=== PATIENT | male | born 1980 | race Two or more races ===

== ENCOUNTER 2025-06-25 08:12 | Emergency (ER) | payer MEDICAID, SELFPAY ==
[2025-06-25 08:12] VITALS: BMI 24.4
[2025-06-25 08:17] VITALS: BP 144/94; PULSE 66; RESP 19; TEMP 37.2; O2SAT 100
--- NOTE | 2025-06-25 08:21 | PD.EDNV ---
Nausea/Vomit./Diarrhea-RME/HPI General Chief complaint: Nausea/Vomiting/Diarrhea Stated complaint: VOMITING DIARRHEA Time Seen by Provider: 06/25/25 08:18 Arrival date/time: 06/25/25 08:12 44-year-old male presents to the Emergency Department today for complaints of nausea vomiting and diarrhea patient reports that he ate pork tacos last night believes that the cause of his symptoms. Report started vomiting and having diarrhea at 2 AM Limitations: no limitations Related Data Home Medications ?Medication ?Instructions ?Recorded ?Confirmed hydrocortisone acetate 25 mg 25 mg RI HS #0 ea 01/16/16 rectal suppository (Anucort-HC) Previous Rx's ?Medication ?Instructions ?Recorded ibuprofen 800 mg tablet 800 mg PO TID PRN pain #30 tabs 06/25/25 loperamide 2 mg capsule (Imodium 2 mg PO Q6H PRN loose stool #14 06/25/25 A-D) caps ondansetron 4 mg disintegrating 4 mg PO Q8H PRN nausea and 06/25/25 tablet vomiting #10 tabs Allergies Allergy/AdvReac Type Severity Reaction Status Date / Time NKA* Allergy Uncoded 06/25/25 08:14 Review of Systems Review of Systems Systems Reviewed: All systems reviewed, normal except as documented Constitutional Constitutional: Reports system reviewed and no additional complaints, except as documented, Denies fever(s) and Denies headache(s) Eyes Eyes: Reports system reviewed and no additional complaints, except as documented and Denies blurry vision ENT Ears, Nose, Mouth, and Throat: Reports system reviewed and no additional complaints, except as documented, Denies headache(s), Denies nasal congestion and Denies nasal discharge Cardiovascular Cardiovascular: Reports system reviewed and no additional complaints, except as documented, Denies chest pain and Denies dyspnea Respiratory Respiratory: Reports system reviewed and no additional complaints, except as documented, Denies chest congestion, Denies cough and Denies dyspnea Gastrointestinal Gastrointestinal: Reports system reviewed and no additional complaints, except as documented, Denies abdominal pain, Reports loose stools, Reports nausea and Reports vomiting Integumentary/Breasts Skin/Breast: Reports system reviewed and no additional complaints, except as documented and Denies rash Neurologic Neurologic: Reports system reviewed and no additional complaints, except as documented, Reports as per HPI and Denies headache(s) Past Medical History Past Medical History NEUROLOGIC: Negative Neurological Disorders CARDIAC: Negative Cardiac Disorders ED Exam General Limitations: Present no limitations General appearance: Present alert and in no apparent distress Head Head exam: Present atraumatic Eye Eye exam: Present normal appearance, PERRL and EOMI ENT ENT exam: Present normal exam, normal oropharynx and mucous membranes moist Neck Neck exam: Present normal inspection, full ROM and trachea midline Chest Chest inspection: Present normal inspection and symmetric chest wall rise Respiratory Respiratory exam: Present normal lung sounds bilaterally Cardiovascular Cardiovascular exam: Present regular rate, normal rhythm and normal heart sounds Abdominal Exam Abdominal exam: Present soft and normal bowel sounds Extremities Exam Extremities exam: Present normal inspection and full ROM Back Exam Back exam: Present normal inspection and full ROM Neurological Exam Neurological exam: Present alert, oriented X3 and CN II-XII intact Psychiatric Psychiatric exam: Present normal affect and normal mood Skin Skin exam: Present warm, dry, intact and normal color Course Quality Measures none Orders Category Date Time Status Bedside COVID-19 Antigen Test NOW Care 06/25/25 08:21 Completed Bedside Influenza A&B Antigen Test NOW Care 06/25/25 08:21 Completed Insert IV NOW Care 06/25/25 08:21 Completed Loperamide [Imodium] Med 06/25/25 08:21 Discontinued 4 mg PO X1 ONE Metoclopramide Inj [Reglan Inj] Med 06/25/25 08:21 Discontinued 10 mg IVP X1 ONE Sodium Chloride 0.9% 1000 ml [Ns] 1,000 ml Med 06/25/25 08:21 Discontinued IV 999 mls/hr Vital Signs Vital signs: Vital Signs Temperature 98.9 F 06/25/25 08:17 Pulse Rate 66 06/25/25 08:17 Respiratory Rate 19 06/25/25 08:17 Blood Pressure 144/94 H 06/25/25 08:17 Pulse Oximetry (%) 100 06/25/25 08:17 Oxygen Delivery Method Room Air 06/25/25 08:17 O2 saturation 100% on room air with normal limits Nausea/Vomiting/Diarrhea MDM Narrative MDM Narrative:: 44-year-old male presents to the Emergency Department today for complaints of nausea vomiting and diarrhea patient reports that he ate pork tacos last night believes that the cause of his symptoms. Report started vomiting and having diarrhea at 2 AM On exam patient hemodynamically stable patient does not appear ill or toxic in no acute distress Patient given IV fluids Zofran and Imodium Patient has soft nontender abdomen no right-sided abdominal pain negative McBurney's point tenderness negative Wang sign Patient discharged home in no distress to follow-up with primary care doctor in the next 24 to 48 hours and for any worsening symptoms to return to the ER immediately Patient data External records reviewed:: [facility] previous records Clinical information provided by:: patient Social determinants that could affect healthcare access:: none Patient has the following chronic illnesses:: None How is presenting disease/condition affected by chronic disease/condition?: no chronic disease Evaluation data The following diagnostics were reviewed and interpreted by me:: other (specify) Lab and/or radiology exams considered but not ordered:: Considered and not ordered Interpretation Summary: N/A Medications / Prescriptions Medications / Prescriptions considered but not ordered:: Given Medication administrations:: Medication Administration History Discontinued Medications Sodium Chloride (Ns) 1,000 mls @ 999 mls/hr IV .Q1H1M ONE Stop: 06/25/25 09:21 Last Infusion: 06/25/25 09:31 Dose: Infused Documented By: Admin: 06/25/25 08:29 Dose: 999 mls/hr Documented By: VESNA Loperamide HCl (Loperamide 2 Mg Capsule) 4 mg PO X1 ONE Stop: 06/25/25 08:22 Last Admin: 06/25/25 08:28 Dose: 4 mg Documented By: VESNA Metoclopramide HCl (Metoclopramide Inj 5 Mg/Ml Vial 2 Ml) 10 mg IVP X1 ONE; Protocol Stop: 06/25/25 08:22 Last Admin: 06/25/25 08:50 Dose: 10 mg Documented By: VESNA Given Consultations Consultation(s) initiated? (list below): No Diagnosis Nausea Differential Diagnosis: traveler's diarrhea, food poisoning and gastroenteritis Most likely diagnosis given after review of the tests above:: Nausea vomiting diarrhea Admission Indicated Admission indicated?: not indicated Admission Request Was there a request for admission?: No Disposition Plan Disposition Plan: Discharge Discharge Attestation Discharge Attestation: The patient and all family members were given an opportunity to ask questions and understood the discharge instructions. Discharge instructions specifically effects, indications for sooner follow up or return to the emergency department, and the expected course of current diagnosis. Patient condition: Stable Discharge Plan Plan Patient Disposition: HOME (Self Care) Discharge Disposition comment: Stable Prescriptions/Referrals Prescriptions/Med Rec: New loperamide [Imodium A-D] 2 mg capsule 2 mg PO Q6H PRN (Reason: loose stool) Qty: 14 0RF ibuprofen 800 mg tablet 800 mg PO TID PRN (Reason: pain) Qty: 30 0RF ondansetron 4 mg tablet,disintegrating 4 mg PO Q8H PRN (Reason: nausea and vomiting) Qty: 10 0RF No Action hydrocortisone acetate [Anucort-HC] 25 MG suppository 25 mg RI HS Qty: 0 Referrals: No Primary/Family,Physician [Primary Care Provider] - 06/26/25 Problem List Clinical Impression: Gastroenteritis, Nausea vomiting and diarrhea Patient/Caregiver Discharge Instructions Education Materials: ED Vomiting (Adult) Additional Instructions: Please follow up with your primary care doctor in the next 24-48hrs for any worsening symptoms return here immediately Print Language: Panamanian Stand Alone Forms: Janice Award Info., Patient Portal Info Letter PA/[facility] [employer] [place] LAW CLERK Supervising Physician PA/[place] [employer] [place] LAW CLERK Supervising Physician: Dr. sauceda
[2025-06-25] MEDS: LOPERAMIDE 2 MG CAPSULE 4 MG PO (08:28)
[2025-06-25] MEDS: SODIUM CHLORIDE 0.9% 1000 ML 1,000 ML 999 ML IV (08:29)
[2025-06-25] MEDS: METOCLOPRAMIDE INJ 5 MG/ML VIAL 2 ML 10 MG IVP (08:50)
[2025-06-25 09:37] VITALS: BP 123/78; PULSE 72; RESP 18; TEMP 36.6; O2SAT 100
== END 2025-06-25 09:38 | disposition home or self-care (01) ==
PROVIDERS: Emergency Provider Nurse Practitioner Primary Care
DX: K52.9 Noninfective gastroenteritis and colitis, unspecified (principal)
CPT/HCPCS: 87400; 87811; 96374; 99283; J2765; J7030; A9270